=== PATIENT | female | born 2000 | race Two or more races ===

== ENCOUNTER 2022-02-20 12:17 | Emergency (ER) | payer MEDICAID, OTHER ==
[~2022-02-20] VITALS: Ht 160 cm; Wt 65.8 kg
[2022-02-20 13:38] VITALS: BP 131/85
[2022-02-20] MEDS ORDERED: TRIA0.02 TOP (13:57)
== END 2022-02-20 14:04 | disposition home or self-care (01) ==
LOC: ER 12:17 → EDBD 12:17 → ER 14:04
DX: L25.9 Unspecified contact dermatitis, unspecified cause (principal)